=== PATIENT | female | born 1990 | race Caucasian/White ===

== ENCOUNTER 2022-04-27 15:07 | Outpatient (CLI) | payer OTHER, SELFPAY ==
[2022-04-27 15:22] VITALS: BP 133/86; PULSE 87
[2022-04-27 15:36] VITALS: BP 126/84; PULSE 86
[2022-04-27 15:51] VITALS: BP 125/86; PULSE 92
[2022-04-27 16:07] VITALS: BP 130/86; PULSE 92
[2022-04-27 16:08] LABS: Hematocrit 38.8 % (33.0-51.0); Hemoglobin* 13.4 gm/dL (12.0-16.0); Mean Corpuscular HGB Conc 35 gm/dL (32-36); Mean Corpuscular Hemoglobin 31 pg (26-34); Mean Corpuscular Volume 90 fL (80-100); Platelet Count* 174 K/uL (140-440); Red Blood Count 4.33 m/uL (4.00-5.20); Slide Review Reflex No; White Blood Count* 7.49 K/uL (4.50-11.00)
[2022-04-27 16:14] LABS: Total Protein Urine 8 mg/dL
[2022-04-27 16:17] LABS: Creatinine Urine 225.3 mg/dL
[2022-04-27 16:27] LABS: Aspartate Amino Transferase* 21 U/L (12-35); Creatinine* 0.6 mg/dL (0.5-1.5); Estimated Glomerular Filt Rate 122 ml/min
[2022-04-27 16:28] LABS: Alanine Aminotransferase* 14 U/L (4-35); Blood Urea Nitrogen* 9 mg/dL (5-24)
--- NOTE | 2022-04-27 17:29 | PC.OBNST ---
NST Note NST Note Start: 04/27/22 16:30 Freq: ONCE Status: Active Protocol: Document 04/27/22 17:16 ABP (Rec: 04/27/22 17:21 ABP [id number]) NST Note 1 Para (# of births) 0 EDC 05/08/22 Patient Presented with Complaint(s) of Other Other Complaints Sent from [facility] [facility] for high diastolic blood pressure readings in the clinic. Reactive Yes MICHAEL Miranda RN Date 04/27/22 Reactive Yes MICHAEL Mckeon RN OB NST charge Yes The provider's electronic signature indicates the NST is reactive/appropriate for gestational age. *Note to provider: If an addendum is required, open the patient's chart and click on the note under the Nurse/Allied Health tab.
== END 2022-04-27 16:45 | disposition home or self-care (01) ==
LOC: OB OUT 15:12 → OB 16:41
PROVIDERS: Visit Provider Family Medicine
DX: O26.899 Other specified pregnancy related conditions, unspecified trimester (principal); R03.0 Elevated blood-pressure reading, without diagnosis of hypertension; Z3A.38 38 weeks gestation of pregnancy
CPT/HCPCS: 36415; 59025; 82565; 82570; 84156; 84450; 84460; 84520; 85027; 99213

== ENCOUNTER 2022-05-04 15:12 | Inpatient (IN) | payer OTHER, SELFPAY ==
[2022-05-04] VITALS (8 sets, daily range): BP systolic 122–138; BP diastolic 77–95; PULSE 71–100; RESP 18; TEMP 36.9–37.1; BMI 34.9
[2022-05-04 16:12] LABS: Hematocrit 38.8 % (33.0-51.0); Hemoglobin* 13.5 gm/dL (12.0-16.0); Mean Corpuscular HGB Conc 35 gm/dL (32-36); Mean Corpuscular Hemoglobin 31 pg (26-34); Mean Corpuscular Volume 90 fL (80-100); Platelet Count* 167 K/uL (140-440); Red Blood Count 4.33 m/uL (4.00-5.20); White Blood Count* 7.35 K/uL (4.50-11.00)
[2022-05-04 16:16] LABS: Slide Review Reflex No
[2022-05-04] MEDS: miSOPROStoL 25 MCG/0.25 TABLET VAGINAL ×3 (16:16→22:50)
[2022-05-04 16:43] LABS: Alanine Aminotransferase* 16 U/L (4-35); Aspartate Amino Transferase* 25 U/L (12-35); Blood Urea Nitrogen* 12 mg/dL (5-24); Creatinine* 0.6 mg/dL (0.5-1.5); Est. Creatinine Clearance* 126.01; Estimated Glomerular Filt Rate 122 ml/min
[2022-05-04 16:43] LABS: Total Protein Urine 12 mg/dL
[2022-05-04 17:15] LABS: SARS PCR* Negative SARS-CoV-2 (Negative)
--- NOTE | 2022-05-04 21:24 | PM.OBHPLI ---
OB - H&P: HPI Labor/Induction History of Present Illness Date Seen: 05/04/22 Chief Complaint: The patient is a 31 year old 1 para 0 at 39.3 weeks gestation with elevated bp noted in clinic at regular OB apt. She was sent over to L and D for induction. Chief complaint: Maternity Indications for induction: maternal hypertension Narrative: Agustina Rodriguez is a 31 year old female History of Present care: good care Ultrasounds: normal mid trimester US complications: gestational hypertension Medical complications: none Review of Systems Status of ROS: Reports: 10 or more systems reviewed and unremarkable except as noted in History and below Meds Home Medications and Allergies Home Medications Medication Instructions Recorded Confirmed Type vit no.95-ferrous 1 tab PO DAILY 04/27/22 05/04/22 History fumarate 28 mg-folic acid 800 mcg tablet () Allergies Allergy/AdvReac Type Severity Reaction Status Date / Time No Known Allergies Allergy Verified 04/27/22 15:25 OB - H&P: Exam Physical Exam: Vital signs: Temp Pulse Resp BP 98.7 F 71 18 127/83 05/04/22 20:08 05/04/22 20:08 05/04/22 20:08 05/04/22 20:08 Constitutional: Constitutional: no acute distress Routine HEENT Exam: Head: Present atraumatic and normal inspection Eye: Present normal appearance ENT: Present mucous membranes moist Routine Respiratory Exam: Comments: Normal without increased work of breathing Routine Cardiovascular Exam: Comments: normal Routine Abdominal Exam: Comments: Routine Exam: External: Present normal external exam Perineum Description: Normal Detailed Labor and Delivery Exam: Dilation (cm): 0 Effacement (%): 70 Cervix position: posterior Consistency: soft Fetus (Single): Station: -2 Routine Extremities Exam: Extremities: Present normal inspection Routine Skin Exam: Present intact and warm Routine Psychiatric Exam: Present normal affect OB - Results Labs Labs: Short CBC 05/04/22 Range/Units 16:05 WBC 7.35 (4.50-11.00) K/uL Hgb 13.5 (12.0-16.0) gm/dL Hct 38.8 (33.0-51.0) % Plt Count 167 (140-440) K/uL BMP 05/04/22 16:05 BUN 12 Creatinine 0.6 Liver Function 05/04/22 Range/Units 16:05 AST 25 (12-35) U/L ALT 16 (4-35) U/L OB - Problem Based A/P Additional Plan (1) Gestational hypertension: Status: Acute Plan Cytotec induction Delivery/Labor/Induction Plan Plan: expectant management Induction method: per misoprostol protocol
[2022-05-05] VITALS (61 sets, daily range): BP systolic 105–174; BP diastolic 59–108; PULSE 67–115; RESP 15–20; TEMP 36.4–37.4; O2SAT 93–100
[2022-05-05] MEDS: miSOPROStoL 25 MCG/0.25 TABLET VAGINAL ×2 (01:50→04:52)
--- NOTE | 2022-05-05 07:10 | PM.OBPNL ---
Pain Control Time Seen by Provider: 06:50 Date Seen: 05/05/22 Contractions Monitor mode: External Contraction pattern: Absent Contraction intensity: Mild Pelvic Exam Dilation (cm): 2 Effacement (%): 30 Station: -2 Comments: Able to pull cervix forward and pt is 2 cm internal external approx 3cm Fetus (Single) status: Category l Assessment and Plan Assessment: other Comments: Pt received 5 doses Cytotec vaginally over night. Cook catheter today and start pit when able
[2022-05-05 07:58] LABS: Hematocrit 42.6 % (33.0-51.0); Hemoglobin* 14.7 gm/dL (12.0-16.0); Mean Corpuscular HGB Conc 35 gm/dL (32-36); Mean Corpuscular Hemoglobin 31 pg (26-34); Mean Corpuscular Volume 90 fL (80-100); Platelet Count* 180 K/uL (140-440); Red Blood Count 4.73 m/uL (4.00-5.20); White Blood Count* 10.64 K/uL (4.50-11.00)
[2022-05-05 08:09] LABS: Slide Review Reflex No
[2022-05-05 08:33] LABS: Creatinine* 0.7 mg/dL (0.5-1.5); Est. Creatinine Clearance* 108.01; Estimated Glomerular Filt Rate 118 ml/min
[2022-05-05 08:34] LABS: Alanine Aminotransferase* 18 U/L (4-35); Aspartate Amino Transferase* 29 U/L (12-35); Blood Urea Nitrogen* 13 mg/dL (5-24)
[2022-05-05] MEDS: hydrOXYzine pamoate 25 MG CAPSULE 100 MG PO (08:39)
[2022-05-05] MEDS: MORPHINE 10 MG/ML inj IM (08:39)
[2022-05-05] MEDS: LACTATED RINGERS 1000 ML 1,000 ML 124 ML IV (10:01)
[2022-05-05] MEDS: OXYTOCIN 30 unit/500 ML in NS 30 UNIT/500 ML BAG IVPB (10:02)
[2022-05-05] MEDS: LIDOCAINE 2% (PF) 5 ML VIAL EPIDURAL (14:01)
[2022-05-05] MEDS: ROPIVACAINE 0.2% 100 ml 100 ML 12 MG EPIDURAL ×2 (14:09→22:03)
--- NOTE | 2022-05-05 14:18 | PM.ANBPRC ---
[facility] Social History Smoking Status: Never smoker Meds Home Medications and Allergies Home Medications Medication Instructions Recorded Confirmed Type vit no.95-ferrous 1 tab PO DAILY 04/27/22 05/04/22 History fumarate 28 mg-folic acid 800 mcg tablet () Allergies Allergy/AdvReac Type Severity Reaction Status Date / Time No Known Allergies Allergy Verified 04/27/22 15:25 Results Labs Labs: Laboratory Results - last 24 hr 05/04/22 05/04/22 05/04/22 15:28 15:28 16:05 WBC 7.35 RBC 4.33 Hgb 13.5 Hct 38.8 MCV 90 MCH 31 MCHC 35 Plt Count 167 BUN Creatinine Estimated Creat Clear Estimated GFR AST ALT Urine Creatinine 159.0 Protein/Creatinin Ratio 0.00 Urine Total Protein 12 SARS-CoV-2 (PCR) Negative SARS-CoV-2 Blood Type Antibody Screen 05/04/22 05/04/22 05/05/22 16:05 16:05 07:45 WBC 10.64 RBC 4.73 Hgb 14.7 Hct 42.6 MCV 90 MCH 31 MCHC 35 Plt Count 180 BUN 12 Creatinine 0.6 Estimated Creat Clear 126.01 Estimated GFR 122 AST 25 ALT 16 Urine Creatinine Protein/Creatinin Ratio Urine Total Protein SARS-CoV-2 (PCR) Blood Type A Positive Antibody Screen NEGATIVE 05/05/22 07:45 WBC RBC Hgb Hct MCV MCH MCHC Plt Count BUN 13 Creatinine 0.7 Estimated Creat Clear 108.01 Estimated GFR 118 AST 29 ALT 18 Urine Creatinine Protein/Creatinin Ratio Urine Total Protein SARS-CoV-2 (PCR) Blood Type Antibody Screen Vital Signs Vital Signs: Last Vital Signs Temp 98.4 F 05/05/22 11:48 Pulse 97 05/05/22 14:17 Resp 16 05/05/22 11:48 BP 116/75 05/05/22 14:17 Pulse Ox 94 05/05/22 14:18 Weight: 98.293 kg Height: 167.64 cm Anesthesia Procedures Epidural Insertion Patient Location: OB Start Time: 14:00 Stop Time: 15:00 Start Date: 05/05/22 Stop Date: 05/05/22 Reason for Block: primary anesthetic Patient Position: sitting Performed By: Ko Law Preanesthetic Checklist: IV checked, risks and benefits discussed, surgical consent, monitors and equipment checked, pre-op evaluation, timeout performed and anesthesia consent Prep: chlorhexidine gluconate Monitoring: blood pressure monitoring, continuous pulse oximetry and heart rate Approach: midline Vertebral Space: lumbar (1-5) Needle Type: Tuohy needle Injection Technique: continuous catheter (continuous catheter) Needle gauge: 17 Needle Length (cm): 10 cm Needle Insertion Depth (cm): 6 Catheter Gauge: 19 Catheter Type: multi-orifice Catheter at skin depth (cm): 12 Test Dose Result: negative and lidocaine 1.5% with epinephrine 1 to 200,000
[2022-05-05] MEDS: LACTATED RINGERS 1000 ML 1,000 ML 125 ML IV (14:37)
--- NOTE | 2022-05-05 15:59 | PM.OBPRCVD ---
OB Vag Delivery Procedures Additional Procedures Cook Catheter Insertion: Yes
[2022-05-05] MEDS: LACTATED RINGERS 1000 ML 1,000 ML 925 ML IV (21:11)
[2022-05-06] VITALS (20 sets, daily range): BP systolic 111–163; BP diastolic 70–97; PULSE 77–112; RESP 15–18; TEMP 36.3–37; O2SAT 95–97
--- NOTE | 2022-05-06 01:20 | PM.OBPRCVD ---
Procedure Delivery date: 05/06/22 Procedure Done: Global Events: Labor Induction and Meconium Stained Fluid Intrapartal Events: Other ( tachycardia Cat 2 tracing) Induction method: other (Citotec followed by Cook catheter and pitocin) Delivery augmentation: pitocin Delivery monitor: internal FHT and internal uterine Route of delivery: Episiotomy description: None Laceration description: Perineal - 2nd Degree (with extenson along both labia.) Delivery repair: Vicryl Estimated blood loss (mL): 175 (QBL) Anesthesia type: Epidural Disposition: floor Infant Infant Gender: Male presentation: vertex Placental Delivery Description: Spontaneous Cord Description: 3 Vessels, Nuchal Cord, Tight and Clamped/Cut
[2022-05-06] MEDS: IBUPROFEN 600 MG TABLET PO ×3 (03:41→18:08)
[2022-05-06 07:14] LABS: Hemoglobin* 12.2 gm/dL (12.0-16.0)
[2022-05-06] MEDS: DOCUSATE SODIUM 100 MG CAPSULE PO (09:05)
[2022-05-07] VITALS (8 sets, daily range): BP systolic 120–148; BP diastolic 83–100; PULSE 82–99; RESP 16–18; TEMP 36.4–37.3; O2SAT 96–97
[2022-05-07] MEDS: IBUPROFEN 600 MG TABLET PO ×4 (01:20→22:41)
[2022-05-07 03:21] LABS: Hematocrit 34.2 % (33.0-51.0); Hemoglobin* 11.7 gm/dL (12.0-16.0); Mean Corpuscular HGB Conc 34 gm/dL (32-36); Mean Corpuscular Hemoglobin 31 pg (26-34); Mean Corpuscular Volume 91 fL (80-100); Platelet Count* 170 K/uL (140-440); Red Blood Count 3.74 m/uL (4.00-5.20); White Blood Count* 11.12 K/uL (4.50-11.00)
[2022-05-07 03:23] LABS: Slide Review Reflex No
[2022-05-07] MEDS: LABETALOL HCL 100 MG TABLET 200 MG PO ×3 (03:23→21:18)
[2022-05-07 03:32] LABS: Alanine Aminotransferase* 15 U/L (4-35); Aspartate Amino Transferase* 29 U/L (12-35); Blood Urea Nitrogen* 12 mg/dL (5-24); Creatinine* 0.9 mg/dL (0.5-1.5); Est. Creatinine Clearance* 84.01; Estimated Glomerular Filt Rate 87 ml/min
--- NOTE | 2022-05-07 06:32 | P.OBPN_ITS ---
OB - PN:Subj Subjective Time Seen by Provider: 06:10 Date Seen: 05/07/22 Patient comments OB post-: no complaints, pain well controlled and perineal pain (central near rectm when sitting in chair but other laceration area not bothering her) Central status: feeding status: exclusively Narrative: with SNS OB - PN: Obj Exam Physical Exam: Vital signs: Temp Pulse Resp BP Pulse Ox O2 Del Method 97.6 F 95 16 133/84 96 05/07/22 03:00 05/07/22 03:00 05/07/22 03:00 05/07/22 03:00 05/07/22 03:00 05/07/22 03:00 Constitutional: Constitutional: no acute distress and cooperative Routine HEENT Exam: Head: Present atraumatic and normal inspection Eye: Present normal appearance ENT: Present mucous membranes moist Routine Respiratory Exam: Respiratory: Present CTA bilaterally Routine Cardiovascular Exam: Cardiovascular: Present RRR Routine Extremities Exam: Extremities: Present normal inspection Routine Neurological Exam: Neurological: Present CN II-XII intact and moving all extremities Routine Psychiatric Exam: Psychiatric: Present normal affect and normal thought process OB - PN: Obj Data Labs Labs: Laboratory Results - last 24 hr 05/06/22 05/07/22 05/07/22 06:58 03:00 03:00 WBC 11.12 H RBC 3.74 L Hgb 12.2 11.7 L Hct 34.2 MCV 91 MCH 31 MCHC 34 Plt Count 170 BUN 12 Creatinine 0.9 Estimated Creat Clear 84.01 Estimated GFR 87 AST 29 ALT 15 OB - PN: A/P Vaginal Delivery Assessment and Plan (1) Gestational hypertension: Status: Acute (2) Encounter for induction of labor: Status: Acute (3) Vaginal delivery: Status: Acute Plan Labetalol started bp controlled at this time Plan day: 1 Plan: routine care
[2022-05-07] MEDS: DOCUSATE SODIUM 100 MG CAPSULE PO ×2 (09:40→22:42)
[2022-05-07] MEDS: LANOLIN CREAM 1 APPLIC TOPICAL (21:26)
[2022-05-08] MEDS: IBUPROFEN 600 MG TABLET PO (06:22)
[2022-05-08 06:31] VITALS: BP 137/96; PULSE 84; RESP 16; TEMP 36.8; O2SAT 96
[2022-05-08 09:00] VITALS: BP 124/84; PULSE 82; RESP 16; TEMP 36.6; O2SAT 96
[2022-05-08] MEDS: LABETALOL HCL 100 MG TABLET 200 MG PO (09:01)
--- NOTE | 2022-05-08 11:10 | PM.OBDSVD1 ---
DS: Providers Provider Time Seen by Provider: 11:50 Date Seen: 05/08/22 Date of admission: 05/04/22 15:12 Primary care physician: Not a Local Provider Admitting Clinician: Sherine Saldana MD Attending Physician on discharge: Sherine Saldana MD Date of Discharge: 05/08/22 DS: Diagnosis Discharge Diagnosis (1) Vaginal delivery: Status: Acute (2) Encounter for induction of labor: Status: Acute (3) Gestational hypertension: Status: Acute Exam Const: Vital Signs, click to edit/add: Vital Signs - 24 hr 05/07/22 12:51 05/07/22 16:18 05/07/22 20:15 Temperature 97.7 F Pulse Rate [Pulse Oximeter] 85 85 Respiratory Rate 18 Blood Pressure [Ri ght Arm] 122/83 120/84 136/87 Pulse Oximetry 97 Oxygen Delivery Me thod Room Air 05/07/22 23:37 05/08/22 06:31 05/08/22 09:00 Temperature 97.5 F L 98.2 F 97.8 F Pulse Rate [Pulse Oximeter] 82 84 82 Respiratory Rate 18 16 16 Blood Pressure [Ri ght Arm] 130/87 137/96 H 124/84 Pulse Oximetry 96 96 96 Oxygen Delivery Me thod Room Air Room Air Room Air Documenting provider has reviewed patient's vital signs: yes Common normals: no apparent distress and oriented x3 General appearance: cooperative, comfortable and well kempt Orientation/consciousness: Yes awake HENMT: Common normals: normocephalic, head/scalp atraumatic, external ears normal and external nose normal Head and scalp: normocephalic and atraumatic Face and sinus: normal facial exam Nose: external nose normal External ear: external ears normal Eye: Common normals: PERRL and conjunctivae normal General eye: normal appearance of both eyes Eyelid: eyelids normal Conjunctiva: conjunctiva(e) normal Sclera: sclerae normal Pupil: PERRL Chest: Common normals: inspection of chest normal Chest: symmetrical chest wall rise Resp: Common normals: normal respiratory effort and clear to auscultation bilaterally Effort & inspection: able to speak in complete sentences and symmetric chest movement Auscultation: clear to auscultation bilaterally Cardio: Common normals: regular rate Rate: regular rate GI: Common normals: Normal to inspection, nondistended, normoactive bowel sounds present Extremity: General: normal exam except as noted (puffy lower leg/ankle) Neuro: Common normals: oriented x3 Sensorium/orientation: awake Psych: Common normals: mental status grossly normal, thought process normal and speech normal Appearance: well kempt Attitude: calm and engaged Activity/motor behavior: appropriate eye contact Speech: normal speech Thought process: normal thought process Thought content: normal thought content Attention/concentration: attention grossly intact Memory/cognition: memory grossly intact Insight: insight good Judgement: judgment good OB - DS: Summary Hospital Course Hospital Course: The patient is a 31 year old at 39.4 weeks gestation that was admitted to the Center on 05/04/22 for induction of labor for maternal gestational htn. She had vaginal delivery. She delivered a viable male infant. She is breast feeding with SNS. the patient has done well. Peripartum Data Infant delivery method: Vaginal Laceration description: Vaginal - 2nd Degree [place] Gender: Male Infant Discharge Plan: Home Status at Discharge Functional status at discharge: independent ambulation Time Spent with Patient Time attestation: Total time spent providing and/or coordinating discharge services: Time spent: Less than 30 minutes Discharge Plan Discharge Disposition: Home, Self-Care Date of Admission: 05/04/22 15:12 Attending Provider on Discharge: Sherine Saldana Primary Care Provider: Provider,Not a Local Condition: Stable Anticipated Discharge Date/Time: 05/08/22 12:30 Discharge Medications: Continued PNV cmb#95-ferrous fumarate-FA [] 28 mg iron- 800 mcg tablet 1 tab PO DAILY Discharge Orders: Discharge Order (Routine); Ordered 05/08/22 Ordered By: Sherine Saldana Patient Education: OB Vaginal/Breast Feeding Activity Level: Activity as Tolerated Discharge Diet: Regular Follow Up Appointments: Sherine Saldana MD [Staff Physician] - Provider,Not a Local [Primary Care Provider] - Forms: [employer] Info Instructions Active Medications Active Medications Meds reviewed: I have reviewed the active medication in the EHR Tap/click to Enter active medications: Active Medications Generic Name Dose Route Start Last Admin Trade Name Freq PRN Reason Stop Dose Admin Acetaminophen 1,000 mg 05/04/22 14:41 Acetaminophen 500 Mg Tablet PO Q6H PRN pain/fever Calcium Carbonate 1,000 - 2,000 mg 05/04/22 14:41 Calcium Carbonate 500 Mg Chew PO Q2H PRN Docusate Sodium 100 mg 05/06/22 08:50 05/07/22 22:42 Docusate Sodium 100 Mg Capsule PO 100 mg BID PRN Administration Hydralazine HCl 0 mg 05/04/22 14:41 Hydralazine Hcl 20 Mg/Ml Inj IVP Q20M PRN Protocol Ibuprofen 600 mg 05/06/22 02:00 05/08/22 06:22 Ibuprofen 600 Mg Tablet PO 600 mg Q6H PRN Administration Labetalol HCl 0 mg 05/04/22 14:41 Labetalol Hcl 5 Mg/Ml Inj IVP Q10M PRN Protocol Labetalol HCl 200 mg 05/07/22 02:45 05/08/22 09:01 Labetalol Hcl 100 Mg Tablet PO 200 mg BID KATHIA Administration Lanolin 1 applic 05/06/22 02:00 05/07/22 21:26 Lanolin Cream TOPICAL 1 applic Q1H PRN Administration Lidocaine/Aluminum/Magnesium/Simeth 30 ml 05/06/22 02:00 Mag Hydrox/Aluminum Hyd/Simeth 30 Ml Oral.Susp PO Q2H PRN Heartburn/Gastric distress Magnesium Hydroxide 30 ml 05/06/22 02:00 Magnesium Hydroxide 30 Ml Oral.Susp PO Q6H PRN Nifedipine 10 - 20 mg 05/04/22 14:41 Nifedipine 10 Mg Capsule PO Q20M PRN Protocol Ondansetron HCl 4 mg 05/04/22 14:41 Ondansetron 2 Mg/Ml Inj IV Q4H PRN Nausea And Vomiting Pramoxine HCl 1 applic 05/06/22 02:00 Pramoxine Hcl 1% Foam TOPICAL QID PRN Simethicone 80 - 160 mg 05/06/22 02:00 Simethicone 80 Mg Tab.Chew PO Q4H PRN gas Sodium Chloride 10 ml 05/04/22 14:41 Sodium Chloride 0.9 % (Flush) 10 Ml Syringe IVF .FLUSH PRN Discontinued Medications Generic Name Dose Route Start Last Admin Trade Name Freq PRN Reason Stop Dose Admin Docusate Sodium Confirm 05/06/22 08:30 Docusate Sodium 100 Mg Capsule Administered 05/06/22 08:31 Dose 100 mg PO .STK-MED ONE Ephedrine Sulfate Confirm 05/05/22 13:33 Ephedrine Sulfate 5 Mg/Ml Inj Administered 05/05/22 13:34 Dose 25 mg IVP .STK-MED ONE Ephedrine Sulfate 10 mg 05/05/22 17:23 Ephedrine Sulfate 5 Mg/Ml Inj IVP Q5M PRN Fentanyl 50 - 100 mcg 05/04/22 14:41 Fentanyl 100 Mcg/2 Ml Inj IVP Q30M PRN Hydroxyzine Pamoate 100 mg 05/04/22 14:41 05/05/22 08:39 Hydroxyzine Pamoate 25 Mg Capsule PO 100 mg ONCE PRN Administration Hydroxyzine Pamoate Confirm 05/05/22 08:31 Hydroxyzine Pamoate 25 Mg Capsule Administered 05/05/22 08:32 Dose 75 mg PO .STK-MED ONE Oxytocin 30 unit in 500 mls @ 300 mls/hr 05/04/22 14:45 Oxytocin 30 Unit/500 Ml In Ns IVPB CONT KATHIA Lactated Ringer's 1,000 mls @ 125 mls/hr 05/04/22 15:00 05/06/22 02:38 Lactated Ringers 1000 Ml IV Not Given .Q8H KATHIA Oxytocin 30 unit in 500 mls @ 1 mls/hr 05/05/22 09:00 05/06/22 02:36 Oxytocin 30 Unit/500 Ml In Ns IVPB 325 mls/hr .TITRATE KATHIA 325 mls/hr Titration Protocol Ropivacaine Confirm 05/05/22 13:33 Ropivacaine 0.2% 100 Ml Administered 05/05/22 13:34 Dose 100 mls @ as directed .ROUTE .STK-MED ONE Ropivacaine 100 mls @ 12 mls/hr 05/05/22 17:30 05/06/22 00:45 Ropivacaine 0.2% 100 Ml EPIDURAL 0 mls/hr CONT KATHIA Infusion Lidocaine HCl 20 ml 05/04/22 14:41 Lidocaine 1% Mdv INJECTION ONCE PRN vaginal lacerations Lidocaine HCl Confirm 05/05/22 13:49 Lidocaine 2% (Pf) 5 Ml Vial Administered 05/05/22 13:50 Dose 5 ml .ROUTE .STK-MED ONE Lidocaine HCl 5 ml 05/05/22 17:23 05/05/22 14:01 Lidocaine 2% (Pf) 5 Ml Vial EPIDURAL 05/05/22 17:24 5 ml ONCE ONE Administration Magnesium Hydroxide 30 ml 05/04/22 14:41 Magnesium Hydroxide 30 Ml Oral.Susp PO Q6H PRN Constipation Misoprostol 25 mcg 05/04/22 15:00 05/05/22 04:52 Misoprostol 25 Mcg/0.25 Tablet VAGINAL 05/05/22 04:16 25 mcg Q3H KATHIA Administration Misoprostol Confirm 05/05/22 04:50 Misoprostol 25 Mcg/0.25 Tablet Administered 05/05/22 04:51 Dose 25 mcg .ROUTE .STK-MED ONE Misoprostol Confirm 05/05/22 09:20 Misoprostol 800 Mcg/4 Tablet Administered 05/05/22 09:21 Dose 40,000 mcg .ROUTE .STK-MED ONE Morphine Sulfate 10 mg 05/04/22 14:41 05/05/22 08:39 Morphine 10 Mg/Ml Inj IM 10 mg ONCE PRN Administration Naloxone HCl 0.2 mg 05/05/22 17:23 Naloxone 0.4 Mg/Ml Inj IVP Q5M PRN Respiratory Depression Oxytocin 10 unit 05/04/22 14:41 Oxytocin 10 Unit/Ml Inj IM ONCE PRN Phenylephrine HCl Confirm 05/05/22 13:33 Phenylephrine 100 Mcg/Ml Syringe Administered 05/05/22 13:34 Dose 1,000 mcg IVP .STK-MED ONE Phenylephrine HCl 50 - 100 mcg 05/05/22 17:23 Phenylephrine 100 Mcg/Ml Syringe IVP Q5M PRN Simethicone 80 - 160 mg 05/04/22 14:41 Simethicone 80 Mg Tab.Chew PO Q4H PRN gas Terbutaline Sulfate 0.25 mg 05/04/22 14:41 Terbutaline 1 Mg/Ml Inj SUBCUT ONCE PRN
== END 2022-05-08 13:49 | disposition home or self-care (01) | DRG 807 ==
PROVIDERS: Family Medicine; Admitting Provider Family Medicine; Visit Provider Family Medicine
DX: O13.4 Gestational [pregnancy-induced] hypertension without significant proteinuria, complicating childbirth (principal); Z37.0 Single live birth; O77.0 Labor and delivery complicated by meconium in amniotic fluid; O70.1 Second degree perineal laceration during delivery; O76 Abnormality in fetal heart rate and rhythm complicating labor and delivery; Z3A.39 39 weeks gestation of pregnancy
CPT/HCPCS: 01967; 36415; 59200; 82565; 82570; 84156; 84450; 84460; 84520; 85018; 85027; 86850; 86900; 86901; 87635; 88307; A9270; J2270; J2795; J7120

== ENCOUNTER 2024-02-10 14:11 | Outpatient (CLI) | payer BC, SELFPAY ==
[2024-02-10] VITALS (22 sets, daily range): BP systolic 122–156; BP diastolic 81–112; PULSE 82–110; RESP 16; TEMP 36.9–37.3
[2024-02-10 14:48] LABS: Hematocrit 42.7 % (33.0-51.0); Hemoglobin* 14.5 gm/dL (12.0-16.0); Mean Corpuscular HGB Conc 34 gm/dL (32-36); Mean Corpuscular Hemoglobin 30 pg (26-34); Mean Corpuscular Volume 88 fL (80-100); Platelet Count* 203 K/uL (140-440); Red Blood Count 4.86 m/uL (4.00-5.20); White Blood Count* 9.78 K/uL (4.50-11.00)
[2024-02-10 14:51] LABS: Slide Review Reflex No
--- NOTE | 2024-02-10 14:57 | CRLHL7_ITS ---
For Patients: As a result of the Century Cures Act, medical imaging exams and procedure reports are released immediately into your electronic medical record. You may view this report before your referring provider. If you have questions, please contact your health care provider. INDICATION: Right upper quadrant pain COMPARISON: none TECHNIQUE: Real time guerrero scale imaging and color Doppler analysis was performed of the right upper quadrant. Exam limited by third-trimester . FINDINGS: The visualized liver is normal. There is a normal appearance of the hepatic IVC and proximal abdominal aorta. There is no evidence of ascites. The gallbladder is of normal size and there are layering echogenic stones in the gallbladder lumen. The gallbladder wall measures 3 mm in thickness. The common bile duct is of normal size and measures 6 mm in diameter at the level of the katelyn hepatis. The pancreas is not well visualized. There is no evidence of a stone or hydronephrosis within the right kidney. The right kidney measures 11.3 cm in length. Main portal vein is patent and measures 1.3 cm. IMPRESSION: Mobile gallstones in the gallbladder lumen with upper limits of normal gallbladder wall and mildly prominent common bile duct. Findings are most consistent with cholelithiasis although can not exclude common bile duct stone on this study. If symptoms persist, would consider surgical referral or MRCP for further evaluation. Discussed with referring provider following the completion of the exam. Dictated by Ko Bonilla MD @ 02/10/2024 4:33:48 PM (Electronically Signed)
[2024-02-10 15:01] LABS: Albumin* 3.9 g/dL (3.3-5.0)
[2024-02-10 15:03] LABS: Creatinine* 0.5 mg/dL (0.5-1.5); Estimated Glomerular Filt Rate 126 ml/min
[2024-02-10 15:04] LABS: Alanine Aminotransferase* 68 U/L (4-35); Alkaline Phosphatase* 167 U/L (40-150); Aspartate Amino Transferase* 114 U/L (12-35); Bilirubin Direct* 0.9 mg/dL (0.0-0.5); Blood Urea Nitrogen* 9 mg/dL (5-24); Total Protein* 7.6 g/dL (6.0-8.3)
[2024-02-10 15:22] LABS: Creatinine Urine 168.7 mg/dL; Total Protein Urine 7 mg/dL
[2024-02-10 15:23] LABS: Fibrinogen* 624 mg/dL (200-450)
[2024-02-10] MEDS: ACETAMINOPHEN 500 MG TABLET 1000 MG PO (16:54)
[2024-02-10 17:08] LABS: INR 0.84 (0.91-1.10); Partial Thromboplastin Time* 26 Seconds (23-33)
[2024-02-10] MEDS: BETAMETHASONE SOD PHOS/ACETATE 6 MG/ML ML 12 MG IM (17:46)
--- NOTE | 2024-02-10 18:17 | PM.OBLDTN ---
OB - Triage/Final Diagnosis Visit Information Time Seen by Provider: 18:17 Date Seen: 02/10/24 Date of evaluation: 02/10/24 Narrative: The patient is a 33 year old 2 para 1 at 35+5 weeks gestation who presents with right upper quadrant pain. Patient was seen in the clinic earlier today for routine visit. Reported right upper quadrant pain starting early this a.m. feels like pressure at the top of her belly. Pain has been constant, seems worth with laying flat. Has not identified any palliating factors. Several hard, small stools, yesterday and this AM. Unusual for her, usually normal, soft BMs. No nausea or vomiting. Limited appetite today. Denies headache or visual change. No significant edema. She has had normal movement today. No cramping or contractions. No vaginal bleeding or loss of fluid. In the clinic, blood pressures were elevated to 130s/99 and 130s/100. She was directed to Labor and delivery at [facility] for further monitoring and evaluation. Evaluation and [facility] was significant for elevated LFTs with AST 114, ALT 68, total bilirubin 2.0 indirect bilirubin 0.9. CBC was unremarkable with platelets of 203, creatinine 0.5, protein creatinine ratio of 0. Blood pressures remained elevated in the non-severe range, high 120s to mid 130s over mid 90s. Right upper quadrant ultrasound showed multiple gallstones with gallbladder wall of 3 mm and common bile duct measuring 6 mm. Noted to be consistent with cholelithiasis, cannot exclude common bile duct stone. status category I. Adam q2-5 minutes, not painful. Case was discussed with general surgeon on-call, Dr. Salas. She noted that the patient could be admitted for MRCP in the morning, but if common bile duct stone was identified would have to be transferred for ERCP. Case was discussed with perinatology, [place] physicians, Dr. West. Noted that severe pre-eclampsia remains in the differential based on the patient elevated blood pressures and transaminitis. Given medical complexity and need for possible ERCP, which cannot be performed at [facility], patient was accepted in transfer to [facility]. Dr. West recommended betamethasone, and patient received one dose prior to transfer. Plan was discussed with the patient, and she is accepting. Evaluation Laboratory results: Laboratory Tests 02/10/24 02/10/24 Range/Units 14:40 14:16 WBC 9.78 (4.50-11.00) K/uL RBC 4.86 (4.00-5.20) m/uL Hgb 14.5 (12.0-16.0) gm/dL Hct 42.7 (33.0-51.0) % MCV 88 (80-100) fL MCH 30 (26-34) pg MCHC 34 (32-36) gm/dL Plt Count 203 (140-440) K/uL INR 0.84 L (0.91-1.10) APTT 26 (23-33) Seconds Fibrinogen 624 H (200-450) mg/dL BUN 9 (5-24) mg/dL Creatinine 0.5 (0.5-1.5) mg/dL Estimated GFR 126 ml/min Total Bilirubin 2.0 H (0.1-1.5) mg/dL Direct Bilirubin 0.9 H (0.0-0.5) mg/dL AST 114 H (12-35) U/L ALT 68 H (4-35) U/L Alkaline Phosphatase 167 H (40-150) U/L Total Protein 7.6 (6.0-8.3) g/dL Albumin 3.9 (3.3-5.0) g/dL Urine Creatinine 168.7 mg/dL Protein/Creatinin Ratio 0.00 (0-0.19) Urine Total Protein 7 mg/dL Vital signs: Vital Signs - 24 hr 02/10/24 14:14 02/10/24 14:21 02/10/24 14:38 Temperature 98.5 F Pulse Rate 88 86 Blood Pressure 129/95 H 125/87 02/10/24 14:53 02/10/24 15:08 02/10/24 15:23 Temperature Pulse Rate 88 87 94 Blood Pressure 122/81 125/83 135/89 02/10/24 15:38 02/10/24 15:53 02/10/24 16:08 Temperature Pulse Rate 88 82 93 Blood Pressure 131/86 129/90 H 134/94 H 02/10/24 16:23 02/10/24 16:39 02/10/24 16:54 Temperature Pulse Rate 96 87 88 Blood Pressure 127/90 H 138/95 H 136/96 H 02/10/24 17:11 02/10/24 17:23 02/10/24 17:38 Temperature Pulse Rate 87 98 107 H Blood Pressure 132/92 H 127/91 H 123/91 H 02/10/24 17:53 02/10/24 18:11 Temperature Pulse Rate 109 H 105 H Blood Pressure 156/112 H 149/106 H Fetus (Single) Heart Rate Baseline: 140 Nursing Home Variability: Moderate (6-25) Monitor Accelerations: Present Monitor Decelerations: None Total Time Spent Total Time Spent: 60 minutes.
--- NOTE | 2024-02-10 20:07 | PC.OBNST ---
NST Note NST Note Start: 02/10/24 14:13 Freq: ONCE Status: Active Protocol: Document 02/10/24 20:05 BRM (Rec: 02/10/24 20:07 BRM Desktop) NST Note 2 Para (# of births) 1 EDC 03/11/24 Gestational Age In Weeks & Days 35 Weeks & 5 Days High Risk Factors High Blood Pressure - Gestational Patient Presented with Complaint(s) of Pain,Headache If Pain, describe location RUQ pain Other Complaints associated with headache, (pre -eclampsia) Reactive Yes Appropriate for Gestational Age Yes RN Maria Victoria Durham RN Date 02/10/24 Reactive Yes Appropriate for Gestational Age Yes MICHAEL Oakley RN Date 02/10/24 OB NST charge Yes Complete NST Note via Write Note Yes The provider's electronic signature indicates the NST is reactive/appropriate for gestational age. *Note to provider: If an addendum is required, open the patient's chart and click on the note under the Nurse/Allied Health tab.
== END 2024-02-10 19:48 | disposition home or self-care (01) ==
LOC: OB OUT 14:11 → OB 14:12
PROVIDERS: Visit Provider Family Medicine
DX: O13.3 Gestational [pregnancy-induced] hypertension without significant proteinuria, third trimester (principal); R51.9 Headache, unspecified; Z3A.35 35 weeks gestation of pregnancy
CPT/HCPCS: 36415; 59025; 76705; 80076; 82565; 82570; 84156; 84520; 85027; 85384; 85610; 85730; G0463; A9270; J0702

== ENCOUNTER 2024-02-10 19:27 | Outpatient (CLI) | payer BC, SELFPAY | END 2024-02-10 19:28 | disposition home or self-care (01) | LOC: AMB 02-17 01:32 | PROVIDERS: Visit Provider Emergency Medicine Emergency Medical Services | DX: R10.9 Unspecified abdominal pain (principal) | CPT/HCPCS: A0425; A0427 ==

== ENCOUNTER 2024-02-13 22:16 | Outpatient (CLI) | payer BC, SELFPAY ==
[2024-02-13] VITALS (7 sets, daily range): BP systolic 110–135; BP diastolic 77–101; PULSE 68–83; TEMP 37.1; O2SAT 96
[2024-02-13 22:50] LABS: Appearance Urine Slightly Cloudy (Clear); Bilirubin Urine 1+ (Negative); Blood Urine Trace-intact (Negative); Color Urine Yellow (Yellow); Glucose Urine Negative (Negative); Ketones Urine Negative (Negative); Leukocyte Esterase Urine Trace (Negative); Nitrite Urine Negative (Negative); Protein Urine Trace (Negative); Specific Gravity Urine 1.025 (1.000-1.030)
[2024-02-13 23:07] LABS: Bacteria Urine Moderate; Squamous Epithelial Cell Urine Moderate (None-Few)
[2024-02-13 23:21] LABS: Total Protein Urine 16 mg/dL
[2024-02-13 23:22] LABS: Creatinine Urine 116.1 mg/dL
[2024-02-13 23:29] LABS: Hematocrit 40.6 % (33.0-51.0); Hemoglobin* 13.6 gm/dL (12.0-16.0); Mean Corpuscular HGB Conc 34 gm/dL (32-36); Mean Corpuscular Hemoglobin 30 pg (26-34); Mean Corpuscular Volume 90 fL (80-100); Platelet Count* 201 K/uL (140-440); Red Blood Count 4.51 m/uL (4.00-5.20); White Blood Count* 8.06 K/uL (4.50-11.00)
[2024-02-13 23:31] LABS: Slide Review Reflex No
[2024-02-13 23:43] LABS: Creatinine* 0.6 mg/dL (0.5-1.5); Estimated Glomerular Filt Rate 121 ml/min
[2024-02-13 23:44] LABS: Alanine Aminotransferase* 175 U/L (4-35); Aspartate Amino Transferase* 162 U/L (12-35); Blood Urea Nitrogen* 15 mg/dL (5-24); Lipase* 563 U/L (23-300)
[2024-02-14] VITALS (9 sets, daily range): BP systolic 106–127; BP diastolic 72–84; PULSE 59–69; RESP 16; TEMP 36.6–36.8; O2SAT 96–98
[2024-02-14] MEDS: LACTATED RINGERS 1000 ML 1,000 ML IV (00:54)
[2024-02-14] MEDS: LACTATED RINGERS 1000 ML 1,000 ML 125 ML IV (05:02)
--- NOTE | 2024-02-14 07:30 | P.OBO_ITS ---
OB Outpatient HPI History of Present Illness History of Present Illness: 33 year old at 36+2 weeks gestation, ARIEL 02/18/2024 , presents with bilateral upper abdominal pain and back pain. Patient has known cholelithiasis requiring hospitalization at [facility] from 02/09-02/11. During that hospitalization, she had downward trending LFTs, no pain with low fat diet so she was discharged to home with recommendations for low fat diet, induction at 37 weeks for gestational HTN and post cholecystectomy. On 02/12, she had [place] food for dinner and an hour later developed low back pain radiating under the bilateral shoulder blades and into the bilateral upper quadrants. She denies fevers, chills, nausea, vomiting or change in BMs. Her NST was reactive and labs showed elevation in transaminases as well as lipase. While in observation, her pain suddenly ceased. She has been kept NPO overnight with IV fluids. This morning she reports no reoccurance of pain. She feels well. Baby moving naturally: Yes Bleeding: No Contractions: No Leaking fluid: No Discharge: No Heartburn: No Back pain: Yes (per HPI, now resolved) Meds Home Medications and Allergies Home Medications ?Medication ?Instructions ?Recorded ?Confirmed ?Type vit no.95-ferrous 1 tab PO DAILY 04/27/22 02/13/24 History fumarate 28 mg-folic acid 800 mcg tablet () aspirin 81 mg chewable tablet 81 mg PO DAILY 02/10/24 02/13/24 History (Santiago Chewable Low Dose Aspirin) Allergies Allergy/AdvReac Type Severity Reaction Status Date / Time No Known Allergies Allergy Verified 02/10/24 15:03 [facility] Social History Smoking Status: Never smoker History History 2 Elective abortions Para 1 Spontaneous abortions Hx # Term Pregnancies Ectopic pregnancies Hx # Pregnancies Multiple births Number of Living Children 1 OB - H&P: Exam Physical Exam Vital signs: Temp Pulse Resp BP Pulse Ox O2 Del Method 97.9 F 61 16 114/74 96 Room Air 02/14/24 06:01 02/14/24 06:01 02/14/24 06:01 02/14/24 06:01 02/14/24 06:01 02/14/24 06:01 Constitutional Constitutional: no acute distress Routine HEENT Exam Head: Present atraumatic Eye: Present EOMI and PERRL ENT: Present mucous membranes moist Routine Neck Exam Neck: Present full ROM Routine Respiratory Exam Respiratory: Present CTA bilaterally Routine Cardiovascular Exam Cardiovascular: RRR Routine Abdominal Exam Comments: Soft without tenderness. Uterus gravid and appropriate for gestational age. Detailed Labor and Delivery Exam Patient Gravid: Yes Fetus (Single) Heart Rate Baseline: 150 Monitor Accelerations: Present Monitor Decelerations: None Money Room Teller Variability: Moderate (6-25) Routine Psychiatric Exam Present normal affect Labs Labs Laboratory Tests 02/14/24 02/13/24 02/13/24 Range/Units 06:47 23:20 22:50 WBC 8.06 (4.50-11.00) K/uL RBC 4.51 (4.00-5.20) m/uL Hgb 13.6 (12.0-16.0) gm/dL Hct 40.6 (33.0-51.0) % MCV 90 (80-100) fL MCH 30 (26-34) pg MCHC 34 (32-36) gm/dL Plt Count 201 (140-440) K/uL BUN 15 (5-24) mg/dL Creatinine 0.6 (0.5-1.5) mg/dL Estimated GFR 121 ml/min AST Pending 162 H (12-35) U/L ALT Pending 175 H (4-35) U/L Lipase Pending 563 H (23-300) U/L Urine Color (Yellow) Urine Appearance (Clear) Urine pH (5.0-8.5) Ur Specific [place] (1.000-1.030) Urine Protein (Negative) Urine Glucose (UA) (Negative) Urine Ketones (Negative) Urine Blood (Negative) Urine Nitrite (Negative) Urine Bilirubin (Negative) Urine Urobilinogen (0.2-1.0) Ur Leukocyte Esterase (Negative) Urine RBC (0-2) Urine WBC (0-5) Ur Squamous Epith Cells (None-Few) Urine Bacteria (None) Urine Creatinine 116.1 mg/dL Protein/Creatinin Ratio 0.10 (0-0.19) Urine Total Protein 16 mg/dL 02/13/24 Range/Units 22:32 WBC (4.50-11.00) K/uL RBC (4.00-5.20) m/uL Hgb (12.0-16.0) gm/dL Hct (33.0-51.0) % MCV (80-100) fL MCH (26-34) pg MCHC (32-36) gm/dL Plt Count (140-440) K/uL BUN (5-24) mg/dL Creatinine (0.5-1.5) mg/dL Estimated GFR ml/min AST (12-35) U/L ALT (4-35) U/L Lipase (23-300) U/L Urine Color Yellow (Yellow) Urine Appearance Slightly Cloudy A (Clear) Urine pH 7.0 (5.0-8.5) Ur Specific [place] 1.025 (1.000-1.030) Urine Protein Trace A (Negative) Urine Glucose (UA) Negative (Negative) Urine Ketones Negative (Negative) Urine Blood Trace-intact A (Negative) Urine Nitrite Negative (Negative) Urine Bilirubin 1+ A (Negative) Urine Urobilinogen 4.0 A (0.2-1.0) Ur Leukocyte Esterase Trace A (Negative) Urine RBC 2-5 A (0-2) Urine WBC 2-5 (0-5) Ur Squamous Epith Cells Moderate A (None-Few) Urine Bacteria Moderate A (None) Urine Creatinine mg/dL Protein/Creatinin Ratio (0-0.19) Urine Total Protein mg/dL Assessment and Plan Assessment and plan (1) Cholelithiasis: Status: Acute (2) Pancreatitis due to biliary obstruction: Status: Acute (3) with 36 completed weeks gestation: Status: Acute (4) Gestational hypertension: Status: Acute Plan Recheck labs this morning. If labs are improving, recommend trial of breakfast. If no pain after breakfast, patient is ok to d/c to home. Follow up with PCP as planned this week. IOL at 37 weeks.
[2024-02-14 07:37] LABS: Aspartate Amino Transferase* 110 U/L (12-35); Lipase* 450 U/L (23-300)
[2024-02-14 07:38] LABS: Alanine Aminotransferase* 165 U/L (4-35)
--- NOTE | 2024-02-14 10:24 | PC.OBNST ---
NST Note NST Note Start: 02/13/24 22:21 Freq: ONCE Status: Active Protocol: Document 02/14/24 10:23 BAW (Rec: 02/14/24 10:24 BAW [id number]) NST Note 2 Para (# of births) 1 EDC 03/11/24 Gestational Age In Weeks & Days 36 Weeks & 2 Days High Risk Factors High Blood Pressure - Gestational Patient Presented with Complaint(s) of Pain If Pain, describe location gallbladder Reactive Yes Appropriate for Gestational Age Yes MICHAEL Begum RNC Date 02/14/24 Reactive Yes Appropriate for Gestational Age Yes MICHAEL Palm RN Date 02/14/24 OB NST charge Yes Complete NST Note via Write Note Yes The provider's electronic signature indicates the NST is reactive/appropriate for gestational age. *Note to provider: If an addendum is required, open the patient's chart and click on the note under the Nurse/Allied Health tab.
== END 2024-02-14 10:40 | disposition home or self-care (01) ==
LOC: OB OUT 22:16 → OB 22:17
PROVIDERS: Visit Provider Family Medicine
DX: O13.3 Gestational [pregnancy-induced] hypertension without significant proteinuria, third trimester (principal); Z3A.36 36 weeks gestation of pregnancy
CPT/HCPCS: 36415; 59025; 81001; 81003; 82565; 82570; 83690; 84156; 84450; 84460; 84520; 85027; 87086; G0463; J7120

== ENCOUNTER 2024-02-20 16:00 | Inpatient (IN) | payer BC, SELFPAY ==
[2024-02-20] VITALS (7 sets, daily range): BP systolic 126–131; BP diastolic 84–95; PULSE 75–83; RESP 16; TEMP 36.7–36.8; BMI 31.8
--- NOTE | 2024-02-20 17:30 | PM.OBHPLI ---
OB - H&P: HPI Labor/Induction History of Present Illness Date Seen: 02/20/24 Chief complaint: GHTN and PP Cholecystectomy : 2 Para: 1 Indications for induction: induced hypertension Narrative: Agustina Rodriguez is a 33 year old 2 para 1 at 37.1 weeks gestation who presents for IOL 2/2 gestational hypertension. has been complicated by recent choledocholithiasis (admitted to [facility] 02/09-02/12/24) with spontaneous passage of sone and plan for cholecystectomy. She has been following a low fat diet. No recurrence of abdominal pain in the past week. No n/v. Has had normal FM without contractions, bleeding or leaking fluid. Denies headaches, dizziness, vision changes, or changes in swelling History of Present care: good care complications: gestational hypertension Labs Blood type: A (+) positive Rubella: immune RPR/VDLR: nonreactive GBS status: negative HBsAG: negative Meds Home Medications and Allergies Home Medications ?Medication ?Instructions ?Recorded ?Confirmed ?Type vit no.95-ferrous 1 tab PO DAILY 04/27/22 02/20/24 History fumarate 28 mg-folic acid 800 mcg tablet () aspirin 81 mg chewable tablet 81 mg PO DAILY 02/10/24 02/20/24 History (Santiago Chewable Low Dose Aspirin) Allergies Allergy/AdvReac Type Severity Reaction Status Date / Time No Known Allergies Allergy Verified 02/10/24 15:03 OB - H&P: Exam Physical Exam: Vital signs: Temp Pulse BP 98.3 F 75 130/88 02/20/24 16:27 02/20/24 16:27 02/20/24 16:27 Constitutional: Constitutional: no acute distress Routine HEENT Exam: Head: Present atraumatic Routine Respiratory Exam: Respiratory: Present CTA bilaterally Routine Cardiovascular Exam: Cardiovascular: RRR Routine Abdominal Exam: Abdominal: Absent guarding, rebound or tenderness Detailed Labor and Delivery Exam: Patient Gravid: Yes Dilation (cm): 1 Effacement (%): 50 Cervix position: mid Consistency: medium Fetus (Single): Station: -3 Amniotic Membrane Status: intact Heart Rate Baseline: 135 Monitor Accelerations: Present Monitor Decelerations: None Penitentiary Variability: Moderate (6-25) OB - Problem Based A/P Additional Plan (1) Gestational hypertension: Status: Acute (2) : Status: Acute Plan at 37.1 weeks gestation here for IOL 2/2 gestational hypertension. Also has recent history of choledocholithiasis. GBS negative. - bedside US confirmed cephalic presentation - Cook Catheter placed for cervical ripening - balloons filled 60cc/60cc - consider starting Pitocin at midnight; will defer to primary OB who will be assuming care of patient. - anticipate
[2024-02-20 23:14] LABS: Basophils Absolute Auto 0.03 K/uL (0.00-0.30); Basophils Percent Auto 0.4 % (0.0-3.0); Eosinophils Absolute Auto 0.06 K/uL (0.00-0.50); Eosinophils Percent Auto 0.7 % (0.0-7.0); Hematocrit 41.7 % (33.0-51.0); Hemoglobin* 14.2 gm/dL (12.0-16.0); Immature Granulocytes Abs Auto 0.02 K/uL (0.00-0.30); Immature Granulocytes Pct Auto 0.2 %; Lymphocytes Absolute Auto 2.49 K/uL (0.90-2.90); Lymphocytes Percent Auto 31.1 % (20-44); Mean Corpuscular HGB Conc 34 gm/dL (32-36); Mean Corpuscular Hemoglobin 30 pg (26-34); Mean Corpuscular Volume 88 fL (80-100); Monocytes Percent Auto 7.7 % (0.0-11.0); Neutrophils Absolute Auto 4.79 K/uL (1.7-7.0); Neutrophils Percent Auto 59.9 % (42.0-72.0); Platelet Count* 181 K/uL (140-440); RDW Coefficient of Variation % 13.3 % (11.5-15.5); Red Blood Count 4.75 m/uL (4.00-5.20); White Blood Count* 8.01 K/uL (4.50-11.00)
[2024-02-20 23:16] LABS: Slide Review Reflex No
[2024-02-21] VITALS (49 sets, daily range): BP systolic 93–160; BP diastolic 61–96; PULSE 62–102; RESP 16–18; TEMP 36.5–37.2; O2SAT 97–100
[2024-02-21] MEDS: OXYTOCIN 30 unit/500 ML in NS 30 UNIT/500 ML BAG IVPB (00:03)
[2024-02-21] MEDS: LACTATED RINGERS 1000 ML 1,000 ML 125 ML IV (00:03)
[2024-02-21] MEDS: MORPHINE 10 MG/ML inj IM (00:24)
[2024-02-21] MEDS: hydrOXYzine pamoate 25 MG CAPSULE 100 MG PO (00:25)
[2024-02-21 01:26] LABS: Creatinine* 0.6 mg/dL (0.5-1.5); Est. Creatinine Clearance* 123.68; Estimated Glomerular Filt Rate 121 ml/min
[2024-02-21 01:27] LABS: Alanine Aminotransferase* 53 U/L (4-35); Aspartate Amino Transferase* 31 U/L (12-35); Blood Urea Nitrogen* 16 mg/dL (5-24)
[2024-02-21 02:03] LABS: Total Protein Urine 8 mg/dL
[2024-02-21 02:06] LABS: Albumin* 3.6 g/dL (3.3-5.0)
[2024-02-21 02:09] LABS: Alkaline Phosphatase* 150 U/L (40-150); Aspartate Amino Transferase* 31 U/L (12-35); Bilirubin Direct* 0.4 mg/dL (0.0-0.5); Bilirubin Total* 1.3 mg/dL (0.1-1.5); Total Protein* 6.8 g/dL (6.0-8.3)
[2024-02-21 02:10] LABS: Alanine Aminotransferase* 54 U/L (4-35)
[2024-02-21 02:15] LABS: Creatinine Urine 51.7 mg/dL
--- NOTE | 2024-02-21 08:10 | PM.OBPNL ---
Subjective Time Seen by Provider: 08:10 Date Seen: 02/21/24 Narrative: Cook catheter removed at 12 hours. Cervical check 5 cm around 0600. Starting to feel contractions. Requesting epidural. Objective Vital Signs: Last Vital Signs Temp 97.7 F 02/21/24 05:42 Pulse 96 02/21/24 08:06 Resp 16 02/21/24 05:42 BP 160/92 H 02/21/24 08:06 Pulse Ox 100 02/21/24 08:08 Contractions Monitor mode: External Contraction Frequency: Q2-3 mins Contraction pattern: Regular Pitocin Rate (mU/min): 8 Assessment Station: -3 Heart Rate Baseline: 120 Monitor Accelerations: Present Monitor Decelerations: None Plan Plan: - Epidural per patient request - Expectant management - Anticipate vaginal delivery
[2024-02-21] MEDS: ROPIVACAINE 0.2% 100 ml 100 ML 12 MG EPIDURAL (08:15)
[2024-02-21] MEDS: BUPIVACAINE 0.25% PF 10 ML 10 ML ML EPIDURAL (08:18)
[2024-02-21] MEDS: LACTATED RINGERS 1000 ML 1,000 ML IV ×2 (08:21→10:02)
--- NOTE | 2024-02-21 08:22 | P.ANBPRC_ITS ---
[facility] Social History What is your current living situation?: I presently have a place to live Problems where you live: no known problems In the past 12 months, utilities in danger of being shut off: no In past 12 months, lack of transportation kept you from medical appts, meetings, work, or getting things needed for daily living: no In the past 12 mos, have been you worried that your food would run out before you had money to buy more?: never true In the past 12 mos, the food you bought just didn't last and you didn't have money to buy more?: never true Smoking Status: Never smoker How often does anyone, including family, friends and others, physically hurt you : never How often does anyone, including family, friends and others, insult or talk down to you: never How often does anyone, including family, friends and others, threaten you with harm: never How often does anyone, including family, friends and others, scream or curse at you: never Meds Home Medications and Allergies Home Medications ?Medication ?Instructions ?Recorded ?Confirmed ?Type vit no.95-ferrous 1 tab PO DAILY 04/27/22 02/20/24 History fumarate 28 mg-folic acid 800 mcg tablet () aspirin 81 mg chewable tablet 81 mg PO DAILY 02/10/24 02/20/24 History (Santiago Chewable Low Dose Aspirin) Allergies Allergy/AdvReac Type Severity Reaction Status Date / Time No Known Allergies Allergy Verified 02/10/24 15:03 Results Labs Labs: Laboratory Results - last 24 hr 02/20/24 02/21/24 02/21/24 22:55 00:00 00:00 WBC 8.01 RBC 4.75 Hgb 14.2 Hct 41.7 MCV 88 MCH 30 MCHC 34 RDW Coeff of Buck 13.3 Plt Count 181 Neut % (Auto) 59.9 Lymph % (Auto) 31.1 [place] % (Auto) 7.7 Eos % (Auto) 0.7 Baso % (Auto) 0.4 Neut # (Auto) 4.79 Lymph # (Auto) 2.49 [place] # (Auto) 0.60 Eos # (Auto) 0.06 Baso # (Auto) 0.03 Abs Immat Gran (auto) 0.02 Imm/Tot Granulo (auto) 0.2 BUN 16 Creatinine 0.6 Estimated Creat Clear 123.68 Estimated GFR 121 Total Bilirubin 1.3 Direct Bilirubin 0.4 AST 31 31 ALT 53 H Alkaline Phosphatase Total Protein Albumin Urine Creatinine Protein/Creatinin Ratio Urine Total Protein Blood Type A Positive Antibody Screen NEGATIVE 02/21/24 02/21/24 00:00 01:24 WBC RBC Hgb Hct MCV MCH MCHC RDW Coeff of Buck Plt Count Neut % (Auto) Lymph % (Auto) [place] % (Auto) Eos % (Auto) Baso % (Auto) Neut # (Auto) Lymph # (Auto) [place] # (Auto) Eos # (Auto) Baso # (Auto) Abs Immat Gran (auto) Imm/Tot Granulo (auto) BUN Creatinine Estimated Creat Clear Estimated GFR Total Bilirubin Direct Bilirubin AST ALT 54 H Alkaline Phosphatase 150 Total Protein 6.8 Albumin 3.6 Urine Creatinine 51.7 Protein/Creatinin Ratio 0.10 Urine Total Protein 8 Blood Type Antibody Screen Vital Signs Vital Signs: Last Vital Signs Temp 97.7 F 02/21/24 05:42 Pulse 85 02/21/24 08:21 Resp 16 02/21/24 05:42 BP 117/85 02/21/24 08:21 Pulse Ox 100 02/21/24 08:08 Weight: 89.358 kg Height: 167.64 cm Anesthesia Procedures Epidural Insertion Patient Location: OB Start Time: 08:00 Stop Time: 08:23 Start Date: 02/21/24 Stop Date: 02/21/24 Reason for Block: procedure for pain Patient Position: sitting Performed By: Serg Vazquez Preanesthetic Checklist: IV checked, risks and benefits discussed, monitors and equipment checked, pre-op evaluation, timeout performed and anesthesia consent Prep: chlorhexidine gluconate Monitoring: blood pressure monitoring, continuous pulse oximetry and heart rate Approach: midline Vertebral Space: lumbar (1-5) Epidural Technique: LIZANDRO saline Needle Type: Tuohy needle Injection Technique: continuous catheter Needle gauge: 17 Needle Length (cm): 10 cm Needle Insertion Depth (cm): 7 Catheter Gauge: 19 Catheter Type: multi-orifice Catheter at skin depth (cm): 13 Test Dose Result: negative and lidocaine 1.5% with epinephrine 1 to 200,000
[2024-02-21] MEDS: PHENYLEPHRINE 100 MCG/ML SYRINGE IVP ×2 (09:19→09:31)
--- NOTE | 2024-02-21 10:59 | W.PM.VAGDE_ITS ---
OB Procedure Vag Delivery Mother Details Mother Details: The patient is a 33 year-old, 2, Para 1, admitted on 02/20/24 at 37+1 Days gestation. : 2 Para: 1 Weeks Gestation: 37.2 Admission Date: 02/20/24 Additional Details Amniotic Membrane Status: AROM Amniotic Membrane Rupture Date: 02/21/24 Amniotic Membrane Rupture Time: 09:43 Amniotic Membrane Fluid Description: Clear Analgesia/Anesthesia Type: Epidural Waterbirth: No Pitcoin: Yes Intrapartal Events: Labor Induction Induction Method: Intracervical balloon catheter Delivery augmentation: rupture of membranes and pitocin Labor Onset: 07:40 Complete: 09:42 Pushin:51 Heart: heart tones during second stage were category 2. Variable decelerations during contractions with rapid recovery. Delivery Details Delivery Date: 02/21/24 Delivery Time: 10:06 Route of delivery: Gender: Male Infant Viability: Alive; Heart Rate Present Position at Delivery: OA Delivery Details: Patient admitted for IOL for gestational hypertension at 37+1 weeks on 02/20/24. Cook catheter placed evening of admission for cervical ripening. IV Pitocin started at 0000. Removed at 12 hours, at which time patient was found to be 5 cm . Contractions became increasingly painful and frequent. Patient requested epidural for pain management with good effect. Vaginal bleeding noted at 0900, and patient found to be a rim with bulging bag. AROM for clear fluid at 0943. Complete shortly thereafter. Pushed with good effort. Delivered over intact perineum via spontaneous vaginal delivery. Infant was placed on maternal abdomen.? Cord was clamped and cut after a 30-60 second delay. Nose and mouth were bulb suctioned.? Infant weight pending. 1 Minute Interval Total Score: 7 5 Minute Interval Total Score: 8 Additional Details Shoulder Dystocia: No Placenta Delivery Time: 10:08 Placental Delivery Description: Spontaneous Delivery repair: Vicryl Procedure Done: Global Blood Loss: 150 Laceration: Perineal - 2nd Degree Blood Loss Measurement Type: QBL Bakri Used: No Sponge/Need Count Correct: Yes Cord Vessel Description: 3 Vessels Event Summary Status: Mother and infant were stable after delivery. Disposition: floor
[2024-02-21] MEDS: IBUPROFEN 600 MG TABLET PO ×2 (17:19→23:52)
[2024-02-22 03:47] VITALS: BP 116/77; PULSE 67; RESP 15; TEMP 36.7; O2SAT 95
--- NOTE | 2024-02-22 04:04 | PM.ANPOST ---
Post Anesthesia Note Post Anesthesia Note Patient seen: Inpatient Respiratory Status: adequate Cardiovascular Status: adequate Mental Status: baseline Pain: adequate Temp: baseline Anesthetic awareness: N/A Complications: none Follow care: none
[2024-02-22 05:59] LABS: Hemoglobin* 12.3 gm/dL (12.0-16.0)
--- NOTE | 2024-02-22 07:12 | PM.OBPNVD1 ---
OB - PN:Subj Subjective Date Seen: 02/22/24 Narrative: Patient seen today on PP day 1. Doing well. Blood pressure well-controlled. No headaches, edema. Pain under control with ibuprofen. Lochia decreasing. Ambulating. Tolerating diet. Normal urination. going ok, flat nipples, plans to supplement until milk comes in. Baby doing well. OB - PN: Obj Exam Physical Exam: Vital signs: Temp Pulse Resp BP Pulse Ox O2 Del Method 98.0 F 67 15 116/77 95 Room Air 02/22/24 03:47 02/22/24 03:47 02/22/24 03:47 02/22/24 03:47 02/22/24 03:47 02/22/24 03:47 Narrative: Gen: NAD Abd: Soft, uterus firm and nontender at umbilicus Ext: Warm, dry, 2+ pedal pulses, no edema b/l. Calves non-tender to palpation. Mood: Appropriate OB - PN: Obj Data Labs Labs: Laboratory Results - last 24 hr 02/22/24 05:51 Hgb 12.3 OB - PN: A/P Delivery Assessment and Plan (1) Gestational hypertension: Status: Acute (2) : Status: Acute Plan Comments: PPD#1 s/p uncomplicated , induced for gestational hypertension. Doing well. Plan: -- Continue current cares. -- Encourage ambulation. -- Take Vitamins while . -- Colace for constipation prophylaxis. -- Advised that nothing per vagina for 6 weeks or until one week after bleeding stops. -- Symptoms of post depression discussed. -- Anticipate discharge to home either this evening or tomorrow. Follow up with in 6 weeks, or sooner if concerned.
[2024-02-22 07:27] VITALS: BP 116/78; PULSE 72; RESP 20; TEMP 36.4; O2SAT 95
[2024-02-22] MEDS: DOCUSATE SODIUM 100 MG CAPSULE PO (09:08)
[2024-02-22] MEDS: IBUPROFEN 600 MG TABLET PO (09:08)
[2024-02-22 13:45] VITALS: BP 106/72; PULSE 88; RESP 16; TEMP 36.6; O2SAT 95
--- NOTE | 2024-02-22 14:28 | PM.OBDSVD1 ---
DS: Providers Provider Date Seen: 02/22/24 Date of admission: 02/20/24 16:00 Primary care physician: Not a Local Provider Admitting Clinician: Fartun Smalls DO Attending Physician on discharge: Fartun Smalls DO DS: Diagnosis Discharge Diagnosis (1) Cholelithiasis: Status: Acute (2) Gestational hypertension: Status: Acute (3) Vaginal delivery: Status: Acute Exam Narrative: Exam Narrative: Gen: No acute distress Resp: Normal rate and effort Abd: Soft, uterus firm and nontender at umbilicus Ext: Warm, dry, 2+ pedal pulses, no edema bilaterally. Calves non-tender to palpation. Const: Vital Signs, click to edit/add: Vital Signs - 24 hr 02/21/24 16:06 02/21/24 19:48 02/21/24 23:58 Temperature 98.9 F 98.4 F 98.2 F Pulse Rate [Blood Pressure Cuff] 82 98 87 Respiratory Rate 16 18 16 Blood Pressure [Le ft Arm] 119/80 130/85 122/80 Pulse Oximetry 97 97 Oxygen Delivery Me thod Room Air Room Air Room Air 02/22/24 03:47 02/22/24 07:27 02/22/24 13:45 Temperature 98.0 F 97.5 F L 97.9 F Pulse Rate [Blood Pressure Cuff] 67 72 88 Respiratory Rate 15 20 16 Blood Pressure [Le ft Arm] 116/77 116/78 106/72 Pulse Oximetry 95 95 95 Oxygen Delivery Me thod Room Air Room Air Room Air OB - DS: Summary Hospital Course Hospital Course: The patient is a 33 year old G 2 P 2 at 37.2 weeks gestation that was admitted to the Center on 02/20/24 for IOL for gestational hypertension. She had an uncomplicated vaginal delivery. She delivered a viable female infant. She is breast/bottle feeding. the patient has done well. History of cholelithiasis during , plan for outpatient cholecystectomy. Infant Gender: Male Status at Discharge Functional status at discharge: independent ambulation Overall status at discharge: patient is progressing back to baseline Time Spent with Patient Time attestation: Total time spent providing and/or coordinating discharge services: Discharge Plan Discharge Disposition: Home, Self-Care Date of Admission: 02/20/24 16:00 Primary Care Provider: Provider,Not a Local Condition: Stable Anticipated Discharge Date/Time: 02/22/24 14:29 Discharge Medications: Continued PNV cmb#95-ferrous fumarate-FA [] 28 mg iron- 800 mcg tablet 1 tab PO DAILY Discontinued aspirin [Santiago Chewable Aspirin] 81 mg tablet,chewable 81 mg PO DAILY Discharge Orders: Discharge Order (Routine); Ordered 02/22/24 Ordered By: Iman Hennessy Patient Education: OB Vaginal/Bottle Feeding, OB Vaginal/Breast Feeding Follow Up Appointments: Provider,Not a Local [Primary Care Provider] - Forms: [facility] Info Instructions DS:Data Additional Comments Additional comments: - Pelvic rest for 6 weeks (no intercourse, tampons or douching), or until one week after vaginal bleeding stops. - Daily activities for the first week should be limited to taking care of patient and her baby, and only as tolerated. - Call MD if fever > 100.4 degrees, bleeding more than 1 pad / hour, foul-smelling discharge, passage of golf-ball sized blood clots, or worsening of pain not controlled by medications. - Counseled on signs of post- depression
[2024-02-23 02:48] LABS: Rapid Plasma Reagin (RPR) Non Reactive (Non Reactive)
== END 2024-02-22 15:30 | disposition home or self-care (01) | DRG 560 ==
PROVIDERS: Family Medicine; Admitting Provider Family Medicine; Visit Provider Family Medicine
DX: O13.4 Gestational [pregnancy-induced] hypertension without significant proteinuria, complicating childbirth (principal); Z3A.37 37 weeks gestation of pregnancy; Z37.0 Single live birth; O70.1 Second degree perineal laceration during delivery; O99.62 Diseases of the digestive system complicating childbirth; K80.20 Calculus of gallbladder without cholecystitis without obstruction
CPT/HCPCS: 01967; 36415; 59200; 76815; 80076; 82565; 82570; 84156; 84450; 84460; 84520; 85018; 85025; 85027; 86592; 86850; 86900; 86901; A9270; C1726; J0665; J2270; J2371; J2795; J7120

== ENCOUNTER 2024-03-06 06:14 | Day surgery (SDC) | payer BC, SELFPAY ==
[2024-03-06] VITALS (11 sets, daily range): BP systolic 103–117; BP diastolic 66–95; PULSE 51–66; RESP 16; TEMP 36.3–37; O2SAT 93–98; BMI 30.2
[2024-03-06 06:29] LABS: Ur HCG Qualitative* Negative (Negative)
[2024-03-06] MEDS: SODIUM CHLORIDE 0.9 % (FLUSH) 10 ML SYRINGE IVF (06:30)
[2024-03-06] MEDS: LACTATED RINGERS 1000 ML 1,000 ML 100 ML IV (06:30)
--- NOTE | 2024-03-06 07:30 | CRLHL7_ITS ---
For Patients: As a result of the Century Cures Act, medical imaging exams and procedure reports are released immediately into your electronic medical record. You may view this report before your referring provider. If you have questions, please contact your health care provider. Indication: TECHNIQUE: Single image submitted. 4.58 mGy fluoroscopy dose. No radiologist involvement. FINDINGS: Common bile duct and opacified intrahepatic biliary tree appear normal. No filling defects or stenosis. Contrast reaches the duodenum. Dictated by Ford Soliman MD @ 03/07/2024 8:45:38 AM (Electronically Signed)
--- NOTE | 2024-03-06 07:37 | W.PM.H&PU ---
History & Physical Update History & Physical Update H&P Reviewed and patient assessed: The following changes are noted below H&P Updates: Reviewed labs from clinic visit. Alk Phos 125, AST was 54 ALT was 59. Will plan on cholangiogram.
[2024-03-06] MEDS: CEFAZOLIN 2 GM INJ IVP (07:52)
[2024-03-06] MEDS: iopamidoL 50 ML VIAL INJECTION (08:30)
[2024-03-06] MEDS: 0.9% SODIUM CHL 50 ML VIAL INJECTION (08:30)
[2024-03-06] MEDS: BUPIVACAINE 0.25% 30 ML INJECTION (08:30)
--- NOTE | 2024-03-06 09:01 | W.ANESCHARGE ---
Anesthesia Charges Start Date/Time Anesthesia Start Date: 03/06/24 Anesthesia Start Time: 07:40 Stop Date/Time Anesthesia Stop Date: 03/06/24 Anesthesia Stop Time: 08:59
--- NOTE | 2024-03-06 09:09 | P.GSOP_ITS ---
Operative Note Date of procedure: 03/06/24 Pre-op diagnosis: 1. Biliary colic 2. choledocholithiasis during Post-op diagnosis: Same Type of Procedure: 1. Laparoscopic cholecystectomy 2. Intraoperative cholangiogram Indications: The patient is a 33-year-old female gallstones who presented last month to the emergency department with epigastric pain in her 3rd trimester . She is found to have elevated bilirubin and was transferred to [facility] for possibility of ERCP. She was monitored overnight and her LFTs improved the next day. She was then discharged home and underwent induction of labor at 37 weeks. She delivered her baby without incident. She was advised to present for cholecystectomy in the period. After delivering, she had another episode of right upper quadrant pain. Her alkaline phosphatase as well as AST and ALT were still mildly elevated in clinic and therefore I recommended cholangiogram at the time of cholecystectomy. She agreed to proceed. Procedure Description: After discussing the risks and benefits of the procedure, the patient signed informed consent.? The operative site was marked and the patient was brought to the operating room and placed on the operating table in supine position.? Care was taken to pad the patient's pressure points.?? The patient was then intubated by anesthesia.?? The operative site was then prepped and draped in the usual sterile fashion.? A time-out was then performed. Entrance to the abdomen was gained via a 5 mm Visiport in the left upper quadrant. The abdomen was insufflated and briefly surveyed for signs of injury. There was none. A 10 mm umbilical port was placed as well as 2 working ports along the right costal margin, all under direct vision. The patient was then placed in reverse Trendelenburg position with the right side up. The gallbladder fundus was grasped and retracted cephalad. The infundibulum was grasped. A combination of hook cautery and blunt dissection was used to carefully dissect out the cystic duct and artery until they could clearly be seen entering the gallbladder without any intervening structures. The gallbladder was dissected off the cystic plate to achieve the critical view. Once this was achieved the cystic artery was clipped with 2 clips proximal and 1 clip distal and divided with scissor. A clip was then placed on the proximal cystic duct. A ductotomy was then created. A cholangiocatheter was then brought into the field and advanced into the duct. This was secured with a clamp. A saline leak test was performed. This was negative. Fluoro was brought into the field and a cholangiogram was performed. Contrast was injected into the duct. The right left hepatic ducts filled. There did not appear to be a filling defect in the common bile duct and there was brisk flow into the duodenum. The cholangiocatheter was then removed. Two clips were then placed distally on the cystic duct the duct was then transected with scissor. The gallbladder was then taken off of the liver bed and removed from the abdomen using an Endo-Catch bag. The gallbladder bed was surveyed for hemostasis which appeared adequate. A small amount of bile which had spilled was suctioned from the abdomen. The umbilical port fascia was closed with 0 Vicryl. The remaining ports were then removed and the abdomen desufflated. The skin was closed with absorbable subcuticular suture. Sterile dressings were then applied. Instrument sponge and needle counts were correct at the end of the case. The patient was then woken and transferred to the PACU in stable condition. The patient tolerated the procedure well. Findings: Normal cholangiogram Anesthesia: GETA Surgeon: Chanell Post MD Estimated blood loss (mL): 5 Specimen: Gallbladder Condition: stable Disposition: PACU
[2024-03-06] MEDS: LACTATED RINGERS 1000 ML 1,000 ML 50 ML IV (09:23)
--- NOTE | 2024-03-06 09:23 | W.ANESCHARGE ---
Anesthesia Charges Start Date/Time Anesthesia Start Date: 03/06/24 Anesthesia Start Time: 07:40 Stop Date/Time Anesthesia Stop Date: 03/06/24 Anesthesia Stop Time: 08:59
--- NOTE | 2024-03-06 10:27 | SUR.PHASEII ---
Pt tolerated water, Patient verbalized understanding of discharge instructions and readiness to be discharged.
== END 2024-03-06 10:40 | disposition home or self-care (01) ==
PROVIDERS: Anesthesiology; Visit Provider Surgery
PROC: 0FT44ZZ Resection of Gallbladder, Percutaneous Endoscopic Approach (ICD-10-PCS; CPT 47563; principal; 2024-03-06 07:30)
DX: K80.10 Calculus of gallbladder with chronic cholecystitis without obstruction (principal)
CPT/HCPCS: 47563; 00790; 74300; 76000; 81025; 88304; J0330; J0665; J0690; J1100; J1630; J2250; J2405; J2704; J2710; J3010; J7120; Q9967